=== PATIENT | male | born 1950 | race African-American/Black ===

== ENCOUNTER 2019-03-01 12:24 | Emergency (ER) | payer OTHER ==
[2019-03-01 13:11] LABS: #Basophils 0.1 thou/uL (0.0-0.2); #Eosinphils 0.2 thou/uL (0.0-0.7); #Lymphocytes 1.6 thou/uL (1.20-3.40); #Monocytes 0.7 thou/uL (0.11-0.59); #Neutrophils 3.8 thou/uL (1.40-6.50); %Basophils 1.9 % (0.0-1.0); %Eosinophils 3.5 % (0.0-10.0); %Monocytes 10.6 % (0.0-10.0); Hemoglobin 14.9 g/dL (14.0-18.0); Mean Corpuscular HGB CONC 33.2 g/dL (32.0-36.0); Mean Corpuscular Hemoglobin 33.3 pg (27.0-31.0); Platelet Count 216 thou/uL (130-400); RBC Distribution Width 12.3 % (11.5-14.5); Red Blood Cell (RBC) Count 4.47 mill/uL (4.70-6.10); White Blood Cell (WBC) Count 6.5 thou/uL (4.8-10.8)
[2019-03-01 13:35] LABS: ALT (SGPT) 19 U/L (8-55); AST (SGOT) 18 U/L (5-34); Albumin 4.3 g/dL (3.4-4.8); Alkaline Phosphatase 70 U/L (40-150); Anion Gap 8 mmol/L (10-20); BUN (Urea Nitrogen) 11 mg/dL (8.4-25.7); Bilirubin, Total 0.5 mg/dL (0.2-1.2); Calc. Creatinine Clearance 0 mL/min (70-130); Calcium 9.2 mg/dL (7.8-10.44); Carbon Dioxide 30 mmol/L (23-31); Chloride 103 mmol/L (98-107); Estimated GFR-MDRD 73; Globulin 2.9 g/dL (2.4-3.5); Glucose 148 mg/dL (80-115); Potassium 4.4 mmol/L (3.5-5.1); Protein, Total 7.2 g/dL (5.8-8.1); Sodium 137 mmol/L (136-145)
--- NOTE | 2019-03-01 13:36 | CT ---
CT HEAD WITHOUT CONTRAST: Date: 03/01/19 INDICATION: Dizziness. No comparison. FINDINGS: Ventricles have normal size and position. Lucency in the right cerebellum suggests old cerebellar infarct. Probable lacunar infarct in the left cerebellum. Mild chronic ischemic white matter change. No mass or hemorrhage. No evidence of acute c ortical infarct. IMPRESSION: Evidence of old cerebellar infarcts. Moderate chronic ischemic white matter changes in the cerebral h emispheres. No evidence of acute cortical infarct or hemorrhage. POS: OFF
[2019-03-01 13:47] LABS: Bilirubin Negative (Negative); Blood, Urine Negative (Negative); Clarity Clear (Clear); Glucose, Urine (Dipstick) Normal (Negative); Leukocyte Negative Leu/uL (Negative); Nitrite Negative (Negative); Protein, Urine (Dipstick) 10 mg/dL (Neg-Trace); Urobilinogen Normal mg/dL (Less than 2)
[2019-03-01] MEDS ORDERED: Meclizine HCl 25 MG TAB ONE (14:36)
== END 2019-03-01 14:41 | disposition home or self-care (01) ==
LOC: ERS 12:24
DX: H81.10 Benign paroxysmal vertigo, unspecified ear (principal); I10 Essential (primary) hypertension; G47.30 Sleep apnea, unspecified; F41.9 Anxiety disorder, unspecified; F32.9 Major depressive disorder, single episode, unspecified; F43.10 Post-traumatic stress disorder, unspecified; Z87.891 Personal history of nicotine dependence; Z79.899 Other long term (current) drug therapy; Z79.82 Long term (current) use of aspirin
CPT/HCPCS: 36415; 70450; 80053; 81003; 84484; 85025; 87086; 93005; J8597

== ENCOUNTER 2020-02-24 18:19 | Inpatient (IN) | payer MEDICARE, OTHER ==
[2020-02-24 19:02] LABS: #Basophils 0.1 thou/uL (0.0-0.2); #Eosinphils 0.2 thou/uL (0.0-0.7); #Lymphocytes 2.3 thou/uL (1.20-3.40); #Monocytes 0.7 thou/uL (0.11-0.59); #Neutrophils 2.9 thou/uL (1.40-6.50); %Basophils 1.4 % (0.0-1.0); %Eosinophils 3.7 % (0.0-10.0); %Lymphocytes 37.1 % (21.0-51.0); %Monocytes 11.1 % (0.0-10.0); %Neutrophils 46.7 % (42.0-75.0); Hemoglobin 14.6 g/dL (14.0-18.0); Mean Corpuscular HGB CONC 33.4 g/dL (32.0-36.0); Mean Corpuscular Hemoglobin 33.5 pg (27.0-31.0); Mean Platelet Volume 7.4 fL (7.4-10.4); Platelet Count 198 thou/uL (130-400); RBC Distribution Width 12.1 % (11.5-14.5); Red Blood Cell (RBC) Count 4.34 mill/uL (4.70-6.10); White Blood Cell (WBC) Count 6.2 thou/uL (4.8-10.8)
--- NOTE | 2020-02-24 19:04 | CT ---
CT BRAIN NONCONTRAST: DATE: 02/24/2020 HISTORY: 69-year-old male with facial droop, headache, and dysarthria COMPARISON: 03/01/2019 FINDINGS: [id number] old infarction in right cerebellar hemisphere again noted. Additional tiny old lacunar infarctions in bilateral cerebellar hemispheres, again noted. Tiny old lacunar infarctions of bilateral thalami again noted. Multiple small and tiny old white matter lacunar infarctions involving bilateral ortega radiata and c entrum semiovale, greater in number than on previous CT. No obstructive hydrocephalus, acute intra-axial or extra-axial hemorrhage, mass effect, midline shift , or extra-axial fluid collection. Calvarium is intact. IMPRESSION: 1) no acute intracranial hemorrhage or mass effect. 2) multiple small old deep cerebral white matter lacunar infarctions, greater in number than on previ ous CT. 3) multiple tiny old lacunar infarctions in bilateral cerebellar hemispheres 4) small-moderate size old infarction in right cerebellar hemisphere 5.) A few tiny old lacunar infarctions in bilateral thalami
[2020-02-24 19:18] LABS: ALT (SGPT) 18 U/L (8-55); AST (SGOT) 17 U/L (5-34); Albumin 4.3 g/dL (3.4-4.8); Alkaline Phosphatase 65 U/L (40-110); Anion Gap 13 mmol/L (10-20); BUN (Urea Nitrogen) 14 mg/dL (8.4-25.7); Bilirubin, Total 0.4 mg/dL (0.2-1.2); Calc. Creatinine Clearance 0 mL/min (70-130); Calcium 8.8 mg/dL (7.8-10.44); Carbon Dioxide 26 mmol/L (23-31); Chloride 104 mmol/L (98-107); Estimated GFR-MDRD 62; Glucose 130 mg/dL (83-110); Potassium 4.2 mmol/L (3.5-5.1); Protein, Total 7.3 g/dL (5.8-8.1); Sodium 139 mmol/L (136-145)
[2020-02-24] MEDS ORDERED: Aspirin Chewable 81 MG TAB ONE (20:01)
[2020-02-24 21:25] LABS: Troponin I 0.019 ng/mL (< 0.028)
[2020-02-24] MEDS ORDERED: Acetaminophen 325 MG TAB PO PRN ×2 (22:36→23:35)
[2020-02-24] MEDS ORDERED: HYDROcodone/Acetaminophen 5/325 mg Tablet PO PRN ×2 (22:36)
[2020-02-24] MEDS ORDERED: Ondansetron ODT 4 MG TAB SL PRN (22:36)
[2020-02-24] MEDS ORDERED: Sodium Chloride 0.9% 1,000 ML IV SCH (22:36)
[2020-02-24] MEDS ORDERED: Ondansetron PF 4 MG/2 ML Vial IVP PRN ×2 (22:36→23:35)
[2020-02-24] MEDS ORDERED: Promethazine HCl 12.5 MG in Sodium Chloride 0.9% 50 ML IVPB PRN (23:35)
[2020-02-24] MEDS ORDERED: Morphine 2 MG/ML VIAL SLOW IVP PRN (23:35)
[2020-02-24] MEDS ORDERED: Guaifenesin DM 100-10/5 ML UDCUP PO PRN (23:35)
[2020-02-24] MEDS ORDERED: hydrALAZINE 20 MG/ML VIAL SLOW IVP PRN (23:36)
[2020-02-24] MEDS ORDERED: Labetalol HCl 100 MG/20 ML VIAL SLOW IVP PRN (23:36)
[2020-02-24] MEDS ORDERED: Dextrose 50% Abboject 50 ML SYRINGE SLOW IVP PRN (23:39)
[2020-02-24] MEDS ORDERED: Electrolyte Replacement Protoc 1 EACH EACH FS SCH (23:45)
[2020-02-24 23:58] LABS: Troponin I 0.017 ng/mL (< 0.028)
--- NOTE | 2020-02-25 00:54 | PDOC.HHP ---
Hospitalist HPI - History of Present Illness R Facial droop, L sided body weakness History of Present Illness: Patient is a 69 year old male with PMH CVA, HTN, HLD, DM who presents to ED for R sided facial droop and L sided body weakness and numbness. Symptoms began at 1300 on 02/22, patient also reports mouth and gum soreness as well as tingling, numbness and shooting pain in L side of body more severe than chronic diabetic neuropathy. He has history of stroke with no residual deficits. In ED, patient not tPA candidate given delayed presentation from onset of symptoms. Patient had a CT head without acute findings. He was given aspirin and is to be admitted for stroke workup. Hospitalist ROS - Review of Systems Constitutional: denies: fever, chills, sweats, weakness, malaise, other Eyes: denies: pain, vision change, conjunctivae inflammation, eyelid inflammation, redness, other ENT: denies: ear pain, ear discharge, nose pain, nose discharge, nose congestion , mouth pain, mouth swelling, throat pain, throat swelling, other Respiratory: denies: cough, dry, shortness of breath, hemoptysis, SOB with excertion, pleuritic pain, sputum, wheezing, other Cardiovascular: denies: chest pain, palpitations, orthopnea, paroxysmal noc. dyspnea, edema, light headedness, other Gastrointestinal: denies: nausea, vomiting, abdominal pain, diarrhea, constipation, melena, hematochezia, other Genitourinary: denies: dysuria, frequency, incontinence, hematuria, retention, other Musculoskeletal: denies: neck pain, shoulder pain, arm pain, back pain, hand pain, leg pain, foot pain, other Skin: denies: rash, lesions, vicky, bruising, other Neurological: reports: weakness, numbness Other: weakness numbness facial droop per HPI All other systems reviewed; all pertinent +/- noted in HPI/Subj - Medication Medications: Active Medications Generic Name Dose Route Start Last Admin Trade Name Freq PRN Reason Stop Dose Admin Sodium Chloride 1,000 mls @ 100 mls/hr 02/24/20 22:36 02/24/20 23:12 Normal Saline 0.9% IV 02/25/20 08:00 1,000 mls .Q10H EDGAR Administration Sodium Chloride 10 ml 02/24/20 22:36 02/24/20 23:12 Flush - Normal Saline IVF 02/25/20 08:00 10 ml PRN PRN Administration Saline Flush amLODIPine TABLET : Strength - 10 mg : ORAL Patient Dose: 1 tab(s) Oral once a day. aspirin oral TABLET : Strength - 81 mg : ORAL Patient Dose: 1 tab(s) Oral once a day. losartan TABLET : Strength - 100 mg : ORAL Patient Dose: 100 mg Oral once a day. Hospitalist History - Past Medical History Other Medical History: CVA, HTN, HLD, DM, protstate cancer - Past Surgical History Other Surgical History: prostatectomy, cataract, aneurysm repair, anxiety, depression. - Family History Family History: reports: no pertinent history - Social History Smoking Status: Former smoker Alcohol: reports: None Drugs: reports: none - Exam General Appearance: NAD, awake alert Eye: PERRL, anicteric sclera ENT: normocephalic atraumatic, no oropharyngeal lesions, moist mucosa ENT - other findings: R facial droop Neck: supple, symmetric, no JVD, no thyromegaly, no lymphadenopathy, no carotid bruit Heart: RRR, no murmur, no gallops, no rubs, normal peripheral pulses Respiratory: CTAB, no wheezes, no rales, no ronchi, normal chest expansion, no tachypnea, normal percussion Gastrointestinal: soft, non-tender, non-distended, normal bowel sounds, no palpable masses, no hepatomegaly, no splenomegaly, no bruit Extremities: no cyanosis, no clubbing, no edema Skin: normal turgor, no lesions, no rashes Neurological - other findings: 4/5 strength in all L arm/leg muscle groups, 5/5 on R. red. sensation L meredith Musculoskeletal: normal tone, no muscle wasting Psychiatric: normal affect, normal behavior, A&O x 3 Hospitalist Results - Labs Result Diagrams: 02/24/20 18:45 02/24/20 18:45 Lab results: WBC 6.2 thou/uL (4.8-10.8) 02/24/20 18:45 Hgb 14.6 g/dL (14.0-18.0) 02/24/20 18:45 Hct 43.6 % (42.0-52.0) 02/24/20 18:45 MCV 101.0 fL (78.0-98.0) H 02/24/20 18:45 Plt Count 198 thou/uL (130-400) 02/24/20 18:45 Neutrophils % 46.7 % (42.0-75.0) 02/24/20 18:45 Sodium 139 mmol/L (136-145) 02/24/20 18:45 Potassium 4.2 mmol/L (3.5-5.1) 02/24/20 18:45 Chloride 104 mmol/L (98-107) 02/24/20 18:45 Carbon Dioxide 26 mmol/L (23-31) 02/24/20 18:45 BUN 14 mg/dL (8.4-25.7) 02/24/20 18:45 Creatinine 1.38 mg/dL (0.7-1.3) H 02/24/20 18:45 Glucose 130 mg/dL (83-110) H 02/24/20 18:45 Calcium 8.8 mg/dL (7.8-10.44) 02/24/20 18:45 Total Bilirubin 0.4 mg/dL (0.2-1.2) 02/24/20 18:45 AST 17 U/L (5-34) 02/24/20 18:45 ALT 18 U/L (8-55) 02/24/20 18:45 Alkaline Phosphatase 65 U/L (40-110) 02/24/20 18:45 Troponin I 0.017 ng/mL (< 0.028) 02/24/20 23:26 Serum Total Protein 7.3 g/dL (5.8-8.1) 02/24/20 18:45 Albumin 4.3 g/dL (3.4-4.8) 02/24/20 18:45 Additional comment: VITAL SIGNS SunFeb 24, 2020 20:30 NESTOR Kumari Jonathan BP: 170/90 (Right Arm) MAP: 116 Pulse: 67 Resp: 16 O2 sat: 96 on (Room Air) Time: 02/24/2020 20:30. all labs, imaging, EKG, ED documents reviewed by me. Hospitalist H&P A/P - Plan Plan: Patient is a 69 year old male with PMH CVA, HTN, HLD, DM who presents to ED for R sided facial droop and L sided body weakness and numbness. # R facial droop, L sided body weakness and numbness concerning for ischemic stroke - CT head with no acute findings but sequela of old strokes probably, MRI and echo ordered - consult neurology - permissive HTN - ASA, lovenox - rehab evaluation - no tPA as 24+ hours between symtom onset and presentation - given repeat strokes, monitor telemetry for afib # DM - SSI, A1C # HTN - permissive HTN # HLD - await home med rec, statin
[2020-02-25 01:59] VITALS: BMI 33.1
[2020-02-25 04:58] LABS: #Basophils 0.1 thou/uL (0.0-0.2); #Eosinphils 0.2 thou/uL (0.0-0.7); #Lymphocytes 2.1 thou/uL (1.20-3.40); #Monocytes 0.7 thou/uL (0.11-0.59); #Neutrophils 3.1 thou/uL (1.40-6.50); %Eosinophils 3.9 % (0.0-10.0); %Lymphocytes 34.3 % (21.0-51.0); %Monocytes 10.9 % (0.0-10.0); Hemoglobin 13.5 g/dL (14.0-18.0); Mean Corpuscular HGB CONC 32.2 g/dL (32.0-36.0); Mean Corpuscular Hemoglobin 32.4 pg (27.0-31.0); Mean Platelet Volume 7.4 fL (7.4-10.4); Platelet Count 192 thou/uL (130-400); RBC Distribution Width 12.1 % (11.5-14.5); Red Blood Cell (RBC) Count 4.17 mill/uL (4.70-6.10); White Blood Cell (WBC) Count 6.2 thou/uL (4.8-10.8)
[2020-02-25 04:59] LABS: Hemoglobin A1c 8.2 % (4.0-6.0)
[2020-02-25 05:15] LABS: Anion Gap 9 mmol/L (10-20); BUN (Urea Nitrogen) 13 mg/dL (8.4-25.7); Calc. Creatinine Clearance 96 mL/min (70-130); Calcium 8.5 mg/dL (7.8-10.44); Carbon Dioxide 28 mmol/L (23-31); Cardiac Risk 3.7 (Less than 4.5); Chloride 105 mmol/L (98-107); Cholesterol 122 mg/dl (< 200 Desired); Estimated GFR-MDRD 79; Glucose 139 mg/dL (83-110); HDL Cholesterol 33 mg/dL (>60 Neg Risk); LDL Cholesterol, Calculated 71 mg/dL; Magnesium 1.7 mg/dL (1.6-2.6); Potassium 3.9 mmol/L (3.5-5.1); Sodium 138 mmol/L (136-145); Triglycerides 88 mg/dL (Less than 150)
[2020-02-25] MEDS ORDERED: Magnesium 2 GM/50 ML 2 GM in Premix Bag 1 BAG IVPB SCH (06:15)
[2020-02-25] MEDS: Polyethylene Glycol 3350 17 GM Packet PO SCH (08:03)
[2020-02-25] MEDS: Aspirin 325 mg Enteric Coated Tablet PO SCH (08:03)
[2020-02-25] MEDS: Enoxaparin Sodium 40 MG/0.4 ML SYRINGE SC SCH (08:03)
[2020-02-25] MEDS: Famotidine 20 MG TAB PO SCH ×2 (08:03→21:04)
[2020-02-25] MEDS: HYDROcodone/Acetaminophen 5/325 mg Tablet PO PRN ×2 (08:04→17:33)
--- NOTE | 2020-02-25 08:39 | MRI ---
Exam: Brain MRI without contrast HISTORY: Left-sided weakness. Evaluate for stroke. COMPARISON: None FINDINGS: Calvarial marrow signal intensity: Appropriate T1 signal Gradient echo sequence: No hemorrhage Brain parenchyma: No mass, mass effect or midline shift. Brain volume, age-appropriate. Cortical murry-white matter differentiation: Preserved Restricted diffusion: Focus of restricted diffusion involving the left ortega radiata. Associated T2 and FLAIR hyperintensity. White matter signal intensities:Additional T2, FLAIR white matter hyperintensities due to chronic sma ll vessel ischemic changes Sinuses: Adequate aeration of the paranasal sinuses and mastoid air cells. IMPRESSION: Acute restricted diffusion in the left coronary radiata. Acute left white matter infarct.
--- NOTE | 2020-02-25 11:24 | ULT ---
BILATERAL CAROTID DUPLEX ULTRASOUND: HISTORY: CVA TECHNIQUE: Grayscale, color-flow and spectral Doppler ultrasound imaging of the extracranial carotid artery syst ems was performed bilaterally. FINDINGS: There is plaque formation on both sides The peak systolic velocity in the right ICA measures 109 cm/s with an end-diastolic velocity of 39 cm /s and a systolic ratio of 1.09. The peak systolic velocity in the left ICA measures 100 cm/s with an end-diastolic velocity of 34 cm/s and a systolic ratio of 1.02. Flow in both vertebral arteries remains antegrade. IMPRESSION: No evidence of hemodynamically significant stenosis in either ICA.
--- NOTE | 2020-02-25 12:29 | CON ---
NEUROLOGY CONSULTATION DATE OF CONSULTATION: 02/25/2020 REASON FOR CONSULTATION: Stroke. HISTORY OF PRESENT ILLNESS: Mr. May is a 69-year-old male with medical history significant for prior CVA, hypertension, hyperlipidemia, diabetes, presented to the emergency room with right facial droop and weakness and numbness of the left side of the body. His symptoms began around 1 p.m. on 02/22, which was also associated with tingling, numbness, and painful paresthesias on the left side of the body, which became most severe than chronic diabetic neuropathy. The patient had a prior stroke, but no residual deficits per the patient. The patient denies any problems with speech, swallowing, nausea, vomiting, headache, chest pain, abdominal pain, recent illness, dysuria, urinary retention, or shortness of breath. He denies any recent contacts or exposure to COVID. He was not deemed a candidate for tPA because of his delayed presentation to the emergency room. Head CT was done, which was negative for acute intracranial pathology. He was given aspirin and admitted for further stroke workup. HOME MEDICATIONS: 1. Amlodipine 10 mg once daily. 2. Aspirin 81 mg once daily. 3. Losartan 100 mg once daily. PAST MEDICAL HISTORY: Prior CVA, hypertension, hyperlipidemia, prostate cancer, diabetes mellitus, anxiety, depression. PAST SURGICAL HISTORY: Prostatectomy, cataract surgery, aneurysm repair. FAMILY HISTORY: No pertinent family history. SOCIAL HISTORY: The patient is a former smoker. Denies alcohol or illegal drug use. ALLERGIES: NKDA REVIEW OF SYSTEMS: Constitutional: denies: fever, chills, sweats, weakness, malaise, other Eyes: denies: pain, vision change, conjunctivae inflammation, eyelid inflammation, redness, other ENT: denies: ear pain, ear discharge, nose pain, nose discharge, nose congestion , mouth pain, mouth swelling, throat pain, throat swelling, other Respiratory: denies: cough, dry, shortness of breath, hemoptysis, SOB with excertion, pleuritic pain, sputum, wheezing, other Cardiovascular: denies: chest pain, palpitations, orthopnea, paroxysmal noc. dyspnea, edema, light headedness, other Gastrointestinal: denies: nausea, vomiting, abdominal pain, diarrhea, constipation, melena, hematochezia, other Genitourinary: denies: dysuria, frequency, incontinence, hematuria, retention, other Musculoskeletal: denies: neck pain, shoulder pain, arm pain, back pain, hand pain, leg pain, foot pain, other Skin: denies: rash, lesions, vicky, bruising, other Neurological: reports: weakness, numbness PHYSICAL EXAMINATION: General Appearance: NAD, awake alert Eye: PERRL, anicteric sclera ENT: normocephalic atraumatic, no oropharyngeal lesions, moist mucosa ENT - other findings: R facial droop Neck: supple, symmetric, no JVD, no thyromegaly, no lymphadenopathy, no carotid bruit Heart: RRR, no murmur, no gallops, no rubs, normal peripheral pulses Respiratory: CTAB, no wheezes, no rales, no ronchi, normal chest expansion, no tachypnea, normal percussion Gastrointestinal: soft, non-tender, non-distended, normal bowel sounds, no palpable masses, no hepatomegaly, no splenomegaly, no bruit Extremities: no cyanosis, no clubbing, no edema Skin: normal turgor, no lesions, no rashes Neurological - : Mental status; the patient is alert and oriented to person, place, and time. Speech is clear. Fund of knowledge is appropriate. Recent and remote memory, intact. Cranial nerves 2 through 12 intact except 7, right facial droop. Motor; muscle tone and bulk are normal. Strength; 4+/5 in the left upper and lower extremities, 5/5 in the right upper and lower extremities. Sensory; decreased sensation in the right upper and lower extremity. Cerebellar; finger-nose testing intact. Gait deferred due to the patient's safety reason. LABORATORY AND DIAGNOSTIC DATA: Data reviewed. I reviewed the labs, which are essentially unremarkable except for hyperglycemia, glucose of 130. Head CT did not reveal any acute intracranial pathology. Carotid Dopplers did not show hemodynamically significant stenosis. 02/24/20 18:45 Lab results: WBC 6.2 thou/uL (4.8-10.8) 02/24/20 18:45 Hgb 14.6 g/dL (14.0-18.0) 02/24/20 18:45 Hct 43.6 % (42.0-52.0) 02/24/20 18:45 MCV 101.0 fL (78.0-98.0) H 02/24/20 18:45 Plt Count 198 thou/uL (130-400) 02/24/20 18:45 Neutrophils % 46.7 % (42.0-75.0) 02/24/20 18:45 Sodium 139 mmol/L (136-145) 02/24/20 18:45 Potassium 4.2 mmol/L (3.5-5.1) 02/24/20 18:45 Chloride 104 mmol/L (98-107) 02/24/20 18:45 Carbon Dioxide 26 mmol/L (23-31) 02/24/20 18:45 BUN 14 mg/dL (8.4-25.7) 02/24/20 18:45 Creatinine 1.38 mg/dL (0.7-1.3) H 02/24/20 18:45 Glucose 130 mg/dL (83-110) H 02/24/20 18:45 Calcium 8.8 mg/dL (7.8-10.44) 02/24/20 18:45 Total Bilirubin 0.4 mg/dL (0.2-1.2) 02/24/20 18:45 AST 17 U/L (5-34) 02/24/20 18:45 ALT 18 U/L (8-55) 02/24/20 18:45 Alkaline Phosphatase 65 U/L (40-110) 02/24/20 18:45 Troponin I 0.017 ng/mL (< 0.028) 02/24/20 23:26 Serum Total Protein 7.3 g/dL (5.8-8.1) 02/24/20 18:45 Albumin 4.3 g/dL (3.4-4.8) 02/24/20 18:45 ASSESSMENT AND PLAN: Mr. Irma May is a 69-year-old male with medical history significant for hypertension, hyperlipidemia, diabetes mellitus, prior stroke, presented with right facial droop and left focal weakness and paresthesias, most likely stroke. MRI of the brain to rule out acute intracranial process. 2D echo to evaluate for left ventricle ejection fraction. Permissive control of blood pressure at this time. Increase aspirin to 324 mg daily. Consider statin for secondary stroke prevention. Strict control of blood glucose. Check hemoglobin A1c, fasting lipid profile, and TSH. Telemetry. DVT prophylaxis. Neuro checks every 4 hours. Continue home medications. Continue medical management per primary team. PT/OT/speech and rehab evaluation. We will continue to follow. Thank you for the consult. Job ID: [id number] MTDD
[2020-02-25] MEDS: HumaLOG 300 UNITS/3 ML VIAL SC PRN (12:34)
[2020-02-25 13:04] LABS: SARS-CoV-2 MS2 Positive; SARS-CoV-2 N Gene Negative; SARS-CoV-2 S Gene Negative; SARS-CoV-2 by NAA Not Detected (NotDetected); SARS-CoV-2 orf1ab Negative
[2020-02-25] MEDS ORDERED: Senokot 8.6 MG TAB PO PRN (13:52)
[2020-02-25] MEDS ORDERED: Atorvastatin Calcium 40 MG TAB PO SCH (21:00)
--- NOTE | 2020-02-25 22:57 | PDOC.HOSPP ---
- Subjective Encounter Date: 02/25/20 Subjective: Doing well. Was able to get up and walk well with PT. Does not feel like he has any residual effects at this time. - Objective Vital Signs & Weight: Vital Signs (12 hours) Temp Pulse Resp BP Pulse Ox 02/25/20 19:55 97.5 F L 65 20 151/81 H 90 L 02/25/20 15:27 97.3 F L 68 20 167/90 H 96 02/25/20 11:37 97.6 F 62 16 159/82 H 92 L Weight Weight 244 lb 4.8 oz I&O: 02/24/20 02/25/20 02/26/20 06:59 06:59 06:59 Intake Total 774 Balance 774 Result Diagrams: 02/25/20 04:38 02/25/20 04:38 Additional Labs: Accuchecks 02/25/20 02/25/20 02/25/20 20:26 17:04 10:28 POC Glucose 215 H 124 H 183 H 02/25/20 05:15 POC Glucose 131 H Hospitalist ROS - Medication Medications: Active Medications Generic Name Dose Route Start Last Admin Trade Name Freq PRN Reason Stop Dose Admin Hydrocodone Bitart/Acetaminophen 1 tab 02/24/20 23:35 02/25/20 17:33 [place] 5/325 PO 1 tab Q4H PRN Administration Moderate Pain (4-6) Aspirin 325 mg 02/25/20 09:00 02/25/20 08:03 Ecotrin PO 325 mg DAILY EDGAR Administration Atorvastatin Calcium 40 mg 02/25/20 21:00 02/25/20 21:04 Lipitor PO 40 mg HS EDGAR Administration Enoxaparin Sodium 40 mg 02/25/20 09:00 02/25/20 08:03 Lovenox SC 40 mg 0900 EDGAR Administration Famotidine 20 mg 02/25/20 09:00 02/25/20 21:04 Pepcid PO 20 mg BID EDGAR Administration Insulin Human Lispro 0 units 02/24/20 23:39 02/25/20 12:34 Humalog SC 2 unit .MILD SLIDING SCALE PRN Administration Mild Correctional Scale Morphine Sulfate 2 mg 02/24/20 23:35 02/25/20 18:45 Morphine SLOW IVP 2 mg Q4H PRN Administration severe pain 4-10 Polyethylene Glycol 17 gm 02/25/20 09:00 02/25/20 08:03 Miralax PO 17 gm DAILY EDGAR Administration Senna 2 tab 02/25/20 13:52 02/25/20 21:04 Senokot PO 2 tab HSPRN PRN Administration Constipation Sodium Chloride 10 ml 02/24/20 23:36 02/25/20 21:05 Flush - Normal Saline IVF 10 ml PRN PRN Administration Saline Flush - Exam General Appearance: NAD, awake alert Neck: supple, symmetric, no JVD, no thyromegaly, no lymphadenopathy, no carotid bruit Heart: RRR, no murmur, no gallops, no rubs, normal peripheral pulses Respiratory: CTAB, no wheezes, no rales, no ronchi, normal chest expansion, no tachypnea, normal percussion Gastrointestinal: soft, non-tender, non-distended, normal bowel sounds, no palpable masses, no hepatomegaly, no splenomegaly, no bruit Extremities: no cyanosis, no clubbing, no edema Skin: normal turgor, no lesions, no rashes Neurological: cranial nerve grossly intact, normal sensation to touch, no weakness, no focal deficits, no new deficit Musculoskeletal: normal tone, normal strength, no muscle wasting Psychiatric: normal affect, normal behavior, A&O x 3 Hosp A/P (1) CVA (cerebral vascular accident) Code(s): I63.9 - CEREBRAL INFARCTION, UNSPECIFIED Status: Acute (2) HTN (hypertension) Code(s): I10 - ESSENTIAL (PRIMARY) HYPERTENSION Status: Acute (3) Diabetes mellitus Code(s): E11.9 - TYPE 2 DIABETES MELLITUS WITHOUT COMPLICATIONS Status: Acute - Plan CVA: Does not appear to have any significant residual deficits at this time. He is on ASA, statin. Reports this is his 3rd, but MRI does not really support that. Appreciate Neuro consult. Continue to observe overnight. Hopefully, can DC tomorrow if he has not complications. HTN: Permissive HTN for now. Resume his Losartan and amlodipine. DM: Metformin and insulin. Generally, control is adequate.
[2020-02-26 06:08] LABS: #Eosinphils 0.2 thou/uL (0.0-0.7); #Lymphocytes 1.5 thou/uL (1.20-3.40); #Monocytes 0.6 thou/uL (0.11-0.59); #Neutrophils 3.1 thou/uL (1.40-6.50); %Basophils 0.4 % (0.0-1.0); %Eosinophils 3.4 % (0.0-10.0); %Lymphocytes 28.4 % (21.0-51.0); %Monocytes 10.8 % (0.0-10.0); %Neutrophils 56.9 % (42.0-75.0); Hemoglobin 13.3 g/dL (14.0-18.0); Mean Corpuscular HGB CONC 32.6 g/dL (32.0-36.0); Mean Corpuscular Hemoglobin 32.9 pg (27.0-31.0); Mean Platelet Volume 7.7 fL (7.4-10.4); Platelet Count 186 thou/uL (130-400); Red Blood Cell (RBC) Count 4.04 mill/uL (4.70-6.10); White Blood Cell (WBC) Count 5.4 thou/uL (4.8-10.8)
[2020-02-26 06:24] LABS: Anion Gap 10 mmol/L (10-20); BUN (Urea Nitrogen) 14 mg/dL (8.4-25.7); Calc. Creatinine Clearance 88 mL/min (70-130); Calcium 8.4 mg/dL (7.8-10.44); Carbon Dioxide 28 mmol/L (23-31); Chloride 104 mmol/L (98-107); Estimated GFR-MDRD 72; Glucose 145 mg/dL (83-110); Magnesium 1.9 mg/dL (1.6-2.6); Potassium 4.2 mmol/L (3.5-5.1); Sodium 138 mmol/L (136-145)
[2020-02-26] MEDS ORDERED: Magnesium 2 GM/50 ML 2 GM in Premix Bag 1 BAG IVPB SCH (07:30)
[2020-02-26] MEDS: Polyethylene Glycol 3350 17 GM Packet PO SCH (07:50)
[2020-02-26] MEDS: HYDROcodone/Acetaminophen 5/325 mg Tablet PO PRN (07:50)
[2020-02-26] MEDS: Famotidine 20 MG TAB PO SCH (07:50)
[2020-02-26] MEDS: Enoxaparin Sodium 40 MG/0.4 ML SYRINGE SC SCH (07:52)
[2020-02-26] MEDS: Aspirin 325 mg Enteric Coated Tablet PO SCH (07:52)
[2020-02-26 08:49] VITALS: BP 159/87; TEMP 98.2
[2020-02-26] MEDS: HumaLOG 300 UNITS/3 ML VIAL SC PRN (10:43)
--- NOTE | 2020-02-26 12:18 | PDOC.NEUPN ---
- Subjective Encounter Date: 03/04/20 Subjective: Patient feels better and denies any new complaints. - Objective Vital Signs & Weight: Vital Signs (12 hours) Temp Pulse Resp BP Pulse Ox 02/26/20 08:00 98.2 F 67 12 159/87 H 93 L 02/26/20 07:50 93 L 02/26/20 03:40 97.9 F 65 18 151/78 H 93 L Weight Weight 244 lb 4.8 oz I&O: 02/25/20 02/26/20 02/27/20 06:59 06:59 06:59 Intake Total 774 Balance 774 Result Diagrams: 02/26/20 05:39 02/26/20 05:39 Additional Labs: Accuchecks 02/26/20 02/26/20 02/25/20 10:37 05:43 20:26 POC Glucose 179 H 144 H 215 H 02/25/20 17:04 POC Glucose 124 H Radiology Reviewed by me: Yes EKG Reviewed by me: Yes ROS - Review of Systems Constitutional: denies: fever, chills, sweats, weakness, malaise, other Eyes: denies: pain, vision change, conjunctivae inflammation, eyelid inflammation, redness, other ENT: denies: ear pain, ear discharge, nose pain, nose discharge, nose congestion , mouth pain, mouth swelling, throat pain, throat swelling, other Respiratory: denies: cough, dry, shortness of breath, hemoptysis, SOB with excertion, pleuritic pain, sputum, wheezing, other Cardiovascular: denies: no pertinent history, AFIB, CAD, CHF, HTN, IN, Syncope, Hyperlipidemia, Mitral valve stenosis, Aortic stenosis, Valve insufficiency, Pulmonary hypertension, Other Gastrointestinal: denies: nausea, vomiting, abdominal pain, diarrhea, constipation, melena, hematochezia, other Genitourinary: denies: dysuria, frequency, incontinence, hematuria, retention, other Skin: denies: rash, lesions, vicky, bruising, other Neurological: reports: numbness. denies: weakness, incoordination, change in speech, confusion, seizures, other - Medication Medications: Active Medications Generic Name Dose Route Start Last Admin Trade Name Freq PRN Reason Stop Dose Admin Acetaminophen 650 mg 02/24/20 23:35 02/26/20 10:43 Tylenol PO 650 mg Q4H PRN Administration Headache/Fever/Mild Pain (1-3) Hydrocodone Bitart/Acetaminophen 1 tab 02/24/20 23:35 02/26/20 07:50 [place] 5/325 PO 1 tab Q4H PRN Administration Moderate Pain (4-6) Albuterol/Ipratropium 3 ml 02/24/20 23:35 02/26/20 02:23 Duoneb NEB 3 ml [id number] PRN Administration SOB &/or Wheezing Aspirin 325 mg 02/25/20 09:00 02/26/20 07:52 Ecotrin PO 325 mg DAILY EDGAR Administration Atorvastatin Calcium 40 mg 02/25/20 21:00 02/25/20 21:04 Lipitor PO 40 mg HS EDGAR Administration Enoxaparin Sodium 40 mg 02/25/20 09:00 02/26/20 07:52 Lovenox SC 40 mg 0900 EDGAR Administration Famotidine 20 mg 02/25/20 09:00 02/26/20 07:50 Pepcid PO 20 mg BID EDGAR Administration Insulin Human Lispro 0 units 02/24/20 23:39 02/26/20 10:43 Humalog SC 2 unit .MILD SLIDING SCALE PRN Administration Mild Correctional Scale Morphine Sulfate 2 mg 02/24/20 23:35 02/25/20 18:45 Morphine SLOW IVP 2 mg Q4H PRN Administration severe pain 4-10 Polyethylene Glycol 17 gm 02/25/20 09:00 02/26/20 07:50 Miralax PO 17 gm DAILY EDGAR Administration Senna 2 tab 02/25/20 13:52 02/25/20 21:04 Senokot PO 2 tab HSPRN PRN Administration Constipation Sodium Chloride 10 ml 02/24/20 23:36 02/25/20 21:05 Flush - Normal Saline IVF 10 ml PRN PRN Administration Saline Flush - Exam General Appearance: awake alert Eye: PERRL ENT: normocephalic atraumatic Neck: supple Respiratory: CTAB Cardiovascular: RRR Gastrointestinal: soft Extremities: no cyanosis Skin: normal turgor Neurological: no new deficit Musculoskeletal: normal tone PSYCH: normal affect, normal behavior, A&O x 3 Results - Labs Result Diagrams: 02/26/20 05:39 02/26/20 05:39 Lab results: WBC 5.4 thou/uL (4.8-10.8) 02/26/20 05:39 Hgb 13.3 g/dL (14.0-18.0) L 02/26/20 05:39 Hct 40.7 % (42.0-52.0) L 02/26/20 05:39 MCV 101.0 fL (78.0-98.0) H 02/26/20 05:39 Plt Count 186 thou/uL (130-400) 02/26/20 05:39 Neutrophils % 56.9 % (42.0-75.0) 02/26/20 05:39 Sodium 138 mmol/L (136-145) 02/26/20 05:39 Potassium 4.2 mmol/L (3.5-5.1) 02/26/20 05:39 Chloride 104 mmol/L (98-107) 02/26/20 05:39 Carbon Dioxide 28 mmol/L (23-31) 02/26/20 05:39 BUN 14 mg/dL (8.4-25.7) 02/26/20 05:39 Creatinine 1.21 mg/dL (0.7-1.3) 02/26/20 05:39 Glucose 145 mg/dL (83-110) H 02/26/20 05:39 Calcium 8.4 mg/dL (7.8-10.44) 02/26/20 05:39 Total Bilirubin 0.4 mg/dL (0.2-1.2) 02/24/20 18:45 AST 17 U/L (5-34) 02/24/20 18:45 ALT 18 U/L (8-55) 02/24/20 18:45 Alkaline Phosphatase 65 U/L (40-110) 02/24/20 18:45 Troponin I 0.017 ng/mL (< 0.028) 02/24/20 23:26 Serum Total Protein 7.3 g/dL (5.8-8.1) 02/24/20 18:45 Albumin 4.3 g/dL (3.4-4.8) 02/24/20 18:45 - EKG Interpretation EKG: NSR - Radiology Interpretation MRI - head Additional Comment: Positive for acute infarction. PN A/P (1) CVA (cerebral vascular accident) Code(s): I63.9 - CEREBRAL INFARCTION, UNSPECIFIED Status: Acute (2) Diabetes mellitus Code(s): E11.9 - TYPE 2 DIABETES MELLITUS WITHOUT COMPLICATIONS Status: Acute (3) HTN (hypertension) Code(s): I10 - ESSENTIAL (PRIMARY) HYPERTENSION Status: Acute - Plan Daily Plan: PT/OT 69 year old presented with focal weakness which is now better. MRI brain was reviewed and was positive for acute infarction. Inconsistent with the presentation. Carotid dopplers did not reveal hemodynamically significant stenosis. 2D Echo showed LVEF 55-60%. No thrombus or PFO. Neurochecks every 4 hours. Telemetry Continue aspirin and statin for secondary stroke prevention. Continue home medications. Continue PT/OT Continue medical management per primary team. Patient stable for discharge . Plan discussed in detail with the patient, during MDR rounds and with the primary attending Dr. Aguila.
--- NOTE | 2020-02-28 15:49 | EKG ---
Test Reason : Blood Pressure : / mmHG Vent. Rate : 061 BPM Atrial Rate : 061 BPM P-R Int : 190 ms QRS Dur : 096 ms QT Int : 380 ms P-R-T Axes : 024 012 032 degrees QTc Int : 382 ms Normal sinus rhythm Nonspecific T wave abnormality Abnormal ECG Confirmed by STEVE MONROY DO ([id number]), video effects editor VALERIY LEES ([id number]) on 02/28/2020 3:49:01 PM Referred By: Confirmed By:STEVE MONROY DO
== END 2020-02-26 12:18 | disposition home or self-care (01) | DRG 65 ==
LOC: ERS 18:19 → 2SE 20:29
PROVIDERS: ADMIT Internal Medicine; ATTEND Internal Medicine
DX: I63.9 Cerebral infarction, unspecified (principal); G81.94 Hemiplegia, unspecified affecting left nondominant side; Z20.828 Contact with and (suspected) exposure to other viral communicable diseases; R29.810 Facial weakness; I10 Essential (primary) hypertension; E78.5 Hyperlipidemia, unspecified; E11.40 Type 2 diabetes mellitus with diabetic neuropathy, unspecified; F41.9 Anxiety disorder, unspecified; F32.9 Major depressive disorder, single episode, unspecified; R29.704 NIHSS score 4; Z79.82 Long term (current) use of aspirin; Z85.46 Personal history of malignant neoplasm of prostate; Z87.891 Personal history of nicotine dependence
CPT/HCPCS: 36415; 36416; 70450; 70551; 80048; 80053; 80061; 83036; 83735; 84484; 85025; 87635; 90471; 90732; 93005; 93306; 93880; 94640; 94760; G0009; J1650; J2270; J3475; J7620; U0003

== ENCOUNTER 2022-05-28 14:37 | Inpatient (IN) | payer MEDICARE ==
[~2022-05-28 14:37] MED LIST: Iopamidol-370 76% 500 ML 1 ML ONE
[2022-05-28] MEDS ORDERED: niCARdipine 25 MG/10 ML VIAL ONE (14:38)
[2022-05-28 14:49] LABS: #Basophils 0.1 thou/uL (0.0-0.2); #Eosinphils 0.2 thou/uL (0.0-0.7); #Lymphocytes 2.7 thou/uL (1.20-3.40); %Basophils 0.8 % (0.0-1.0); %Eosinophils 1.5 % (0.0-10.0); %Lymphocytes 20.7 % (21.0-51.0); %Monocytes 7.5 % (0.0-10.0); %Neutrophils 69.5 % (42.0-75.0); Hemoglobin 15.9 g/dL (14.0-18.0); Mean Corpuscular HGB CONC 35.4 g/dL (32.0-36.0); Mean Corpuscular Hemoglobin 35.8 pg (27.0-31.0); Mean Platelet Volume 7.8 fL (7.4-10.4); Platelet Count 158 10x3/uL (130-400); RBC Distribution Width 12.1 % (11.5-14.5); Red Blood Cell (RBC) Count 4.45 mill/uL (4.70-6.10); White Blood Cell (WBC) Count 12.9 10x3/uL (4.8-10.8)
[2022-05-28 14:58] LABS: PTT 23.3 sec (22.9-36.1); Prothrombin Time 13.5 sec (12.0-14.7)
[2022-05-28 15:04] LABS: ALT (SGPT) 20 U/L (8-55); AST (SGOT) 18 U/L (5-34); Albumin 4.1 g/dL (3.4-4.8); Alkaline Phosphatase 79 U/L (40-110); Anion Gap 12 mmol/L (10-20); BUN (Urea Nitrogen) 14 mg/dL (8.4-25.7); Bilirubin, Total 0.5 mg/dL (0.2-1.2); CK (CPK) 70 U/L (30-200); Calc. Creatinine Clearance 0 mL/min (70-130); Calcium 8.6 mg/dL (7.8-10.44); Carbon Dioxide 25 mmol/L (23-31); Chloride 106 mmol/L (98-107); Estimated GFR 60; Globulin 2.9 g/dL (2.4-3.5); Potassium 3.9 mmol/L (3.5-5.1); Sodium 139 mmol/L (136-145)
[2022-05-28 15:07] LABS: Glucose 402 mg/dL (83-110)
[2022-05-28 15:38] LABS: Actual Bicarbonate (HCO3v) 25 mEq/L (22-28); Analyzer IN Cardio ER; Base Excess -2.7 mEq/L (-2.0 to +3.0); Calcium, Ionized (venous) 1.12 mmol/L (1.16-1.32); Chloride (VBG) 104 mmol/L (98-106); Hemoglobin (Hb) 15.9 g/dL (12.6-17.4); Potassium (VBG) 3.82 mmol/L (3.70-5.30); Sodium 139.2 mmol/L (133-146)
[2022-05-28 16:09] LABS: Actual Bicarbonate (HCO3a) 21.5 mEq/L (22-28); Analyzer IN Cardio ER; Base Excess (BEa) -1.3 mEq/L (-2.0 to +3.0); CO2 Tension 31.4 mmHg (35.0-45.0); Calcium, Ionized (arterial) 1.12 mmol/L (1.12-1.30); Carboxyhemoglobin (COHb) 0.3 gm% (0.0-3.0); Hemoglobin (Hb) 14.9 g/dL (14.0-18.0); O2 Tension (PaO2), arterial 124.1 mmHg (> 70.0); Potassium - ABG Lab 3.94 mmol/L (3.70-5.30); pH, Arterial 7.45 (7.35-7.45)
[2022-05-28 16:10] LABS: Puncture Site RRA
[2022-05-28] MEDS ORDERED: FENTANYL 50 MCG/ML 1 ML VIAL ONE ×2 (16:32→16:33)
[2022-05-28] MEDS ORDERED: Fentanyl CADD 100 ML IV SCH (16:45)
[2022-05-28] MEDS ORDERED: Dextrose 50% Abboject 50 ML SYRINGE SLOW IVP PRN (17:12)
[2022-05-28] MEDS ORDERED: Dextrose 5% in Water 1,000 ML IV PRN (17:12)
[2022-05-28] MEDS ORDERED: HumaLOG 300 UNITS/3 ML VIAL SC PRN ×2 (17:12)
[2022-05-28 17:54] LABS: Actual Bicarbonate (HCO3v) 20 mEq/L (22-28); Analyzer IN Cardio ER; Base Excess -7.8 mEq/L (-2.0 to +3.0); Calcium, Ionized (venous) 1.01 mmol/L (1.16-1.32); Chloride (VBG) 104 mmol/L (98-106); Hemoglobin (Hb) 14.7 g/dL (12.6-17.4); Sodium 137.4 mmol/L (133-146); pH (venous) 7.24 (7.32-7.43)
[2022-05-28 17:54] LABS: SARS-CoV-2 NAA Rapid Test Not Detected (NotDetected)
[2022-05-28] MEDS ORDERED: niCARdipine 50 MG in Sodium Chloride 0.9% 250 ML 230 ML IVPB SCH (19:30)
[2022-05-28] MEDS: Lactated Ringer's 1,000 ML IV SCH (19:40)
[2022-05-28] MEDS ORDERED: Acetaminophen 325 MG TAB PER TUBE PRN (20:31)
[2022-05-28] MEDS ORDERED: Senokot S 8.6-50 MG TAB PO PRN (20:35)
[2022-05-28] MEDS ORDERED: Ondansetron PF 4 MG/2 ML Vial IVP PRN (20:35)
[2022-05-28] MEDS ORDERED: Bisacodyl 5 MG TAB PO PRN (20:35)
[2022-05-28] MEDS ORDERED: Midazolam HCl 2 mg/2 ml Vial SLOW IVP PRN (20:35)
[2022-05-28] MEDS ORDERED: Ondansetron ODT 4 MG TAB PO PRN (20:35)
[2022-05-28] MEDS ORDERED: Propofol 1,000 MG/100 ML VIAL IV PRN (20:45)
[2022-05-28] MEDS ORDERED: Ventilator Sedation Protocol 1 EACH FS SCH (20:45)
[2022-05-28] MEDS ORDERED: DISCONTINUE PREVIOUS NARCOTIC PAIN MEDICATIONS AND BENZODIAZEPINES FS SCH (20:45)
[2022-05-28] MEDS ORDERED: Fentanyl BOLUS 250 ML IVPB PRN (20:45)
[2022-05-28] MEDS ORDERED: Morphine 4 MG/ML VIAL SLOW IVP PRN (20:45)
[2022-05-28] MEDS ORDERED: Propofol BOLUS 1,000 MG/100 ML VIAL IV PRN (20:45)
[2022-05-28] MEDS: HumaLOG 300 UNITS/3 ML VIAL SC PRN (21:26)
[2022-05-28] MEDS ORDERED: Sterile Water 10 ML ONE (21:29)
[2022-05-28] MEDS ORDERED: Sodium Chloride 0.9% 15 ML NEB ONE (21:34)
[2022-05-28 22:07] LABS: Actual Bicarbonate (HCO3a) 20.8 mEq/L (22-28); Base Excess (BEa) 0.1 mEq/L (-2.0 to +3.0); Carboxyhemoglobin (COHb) 0.2 gm% (0.0-3.0); Hemoglobin (Hb) 14.4 g/dL (14.0-18.0); O2 Tension (PaO2), arterial 175.1 mmHg (> 70.0); Potassium - ABG Lab 4.25 mmol/L (3.70-5.30); pH, Arterial 7.54 (7.35-7.45)
[2022-05-28 22:13] LABS: ALV-art Gradient 150.525 mmHg (0-20); CO2 Tension 24.7 mmHg (35.0-45.0); Puncture Site LRA
[2022-05-28] MEDS ORDERED: Acetaminophen 650 MG Suppository PR PRN (22:17)
[2022-05-28] MEDS: niCARdipine 50 MG, Admixture Fee 1 EACH in Sodium Chloride 0.9% 250 ML 230 ML IVPB SCH (22:19)
[2022-05-29] MEDS: HumaLOG 300 UNITS/3 ML VIAL SC PRN ×5 (00:56→16:24)
[2022-05-29] MEDS ORDERED: NPH, Human Insulin Isophane 300 UNIT/3 ML VIAL SC SCH (01:00)
[2022-05-29] MEDS ORDERED: Insulin NPH Human Isophane 100 UNIT/ML (10 ML VIAL) SC SCH (01:45)
[2022-05-29 04:55] LABS: #Lymphocytes 1.3 thou/uL (1.20-3.40); #Neutrophils 8.9 thou/uL (1.40-6.50); %Basophils 0.2 % (0.0-1.0); %Eosinophils 0.1 % (0.0-10.0); %Lymphocytes 11.5 % (21.0-51.0); %Monocytes 9.1 % (0.0-10.0); Hemoglobin 14.2 g/dL (14.0-18.0); Mean Corpuscular HGB CONC 33.4 g/dL (32.0-36.0); Mean Corpuscular Hemoglobin 33.4 pg (27.0-31.0); Mean Corpuscular Volume 99.8 fl (78.0-98.0); Mean Platelet Volume 8.5 fL (7.4-10.4); Platelet Count 149 10x3/uL (130-400); RBC Distribution Width 12.2 % (11.5-14.5); Red Blood Cell (RBC) Count 4.26 mill/uL (4.70-6.10); White Blood Cell (WBC) Count 11.3 10x3/uL (4.8-10.8)
[2022-05-29 05:13] LABS: ALT (SGPT) 17 U/L (8-55); AST (SGOT) 23 U/L (5-34); Albumin 3.7 g/dL (3.4-4.8); Alkaline Phosphatase 69 U/L (40-110); Anion Gap 15 mmol/L (10-20); BUN (Urea Nitrogen) 22 mg/dL (8.4-25.7); Bilirubin, Total 0.7 mg/dL (0.2-1.2); Calc. Creatinine Clearance 60 mL/min (70-130); Calcium 8.9 mg/dL (7.8-10.44); Carbon Dioxide 22 mmol/L (23-31); Chloride 109 mmol/L (98-107); Estimated GFR 44; Glucose 291 mg/dL (83-110); Protein, Total 6.7 g/dL (5.8-8.1); Sodium 142 mmol/L (136-145)
[2022-05-29 07:43] LABS: Actual Bicarbonate (HCO3a) 20.7 mEq/L (22-28); Base Excess (BEa) 0.1 mEq/L (-2.0 to +3.0); Calcium, Ionized (arterial) 1.16 mmol/L (1.12-1.30); Carboxyhemoglobin (COHb) 0.5 gm% (0.0-3.0); Hemoglobin (Hb) 14.6 g/dL (14.0-18.0); O2 Tension (PaO2), arterial 105.7 mmHg (> 70.0); pH, Arterial 7.55 (7.35-7.45)
[2022-05-29 07:46] LABS: CO2 Tension 24.4 mmHg (35.0-45.0); Puncture Site RRA
[2022-05-29] MEDS: Insulin Glargine 30 UNITS/0.3 ML VIAL SC SCH (08:40)
[2022-05-29] MEDS: Pantoprazole 40 MG VIAL IVP SCH (08:42)
[2022-05-29] MEDS: Lactated Ringer's 1,000 ML IV SCH ×2 (08:47→23:00)
[2022-05-29] MEDS ORDERED: Amlodipine 10 MG TAB PO SCH (14:00)
[2022-05-29] MEDS ORDERED: Losartan 25 MG TAB PO SCH (14:00)
[2022-05-29] MEDS: CEFAZOLIN 2 GM in Sodium Chloride 0.9% 100 ML IVPB SCH ×2 (14:06→21:05)
[2022-05-29 17:26] VITALS: BMI 31.6
[2022-05-29] MEDS: Atorvastatin Calcium 40 MG TAB PO SCH (20:53)
[2022-05-30] MEDS: HumaLOG 300 UNITS/3 ML VIAL SC PRN ×5 (01:31→21:24)
[2022-05-30] MEDS: niCARdipine 50 MG, Admixture Fee 1 EACH in Sodium Chloride 0.9% 250 ML 230 ML IVPB SCH ×2 (01:31→23:17)
[2022-05-30 04:18] LABS: Actual Bicarbonate (HCO3v) 23 mEq/L (22-28); Base Excess -1.3 mEq/L (-2.0 to +3.0); Calcium, Ionized (venous) 1.14 mmol/L (1.16-1.32); Chloride (VBG) 109 mmol/L (98-106); Hemoglobin (Hb) 13.7 g/dL (12.6-17.4); Potassium (VBG) 3.68 mmol/L (3.70-5.30); Sodium 139.9 mmol/L (133-146); pH (venous) 7.42 (7.32-7.43)
[2022-05-30] MEDS: CEFAZOLIN 2 GM in Sodium Chloride 0.9% 100 ML IVPB SCH ×3 (05:14→21:02)
[2022-05-30] MEDS ORDERED: levETIRAcetam 500 MG/5 ML VIAL SLOW IVP SCH ×2 (08:00→09:00)
[2022-05-30] MEDS: Losartan 25 MG TAB PO SCH (08:17)
[2022-05-30] MEDS: Pantoprazole 40 MG VIAL IVP SCH (08:18)
[2022-05-30] MEDS: Amlodipine 10 MG TAB PO SCH (08:18)
[2022-05-30] MEDS: Insulin Glargine 30 UNITS/0.3 ML VIAL SC SCH (08:18)
[2022-05-30] MEDS: Lactated Ringer's 1,000 ML IV SCH (08:18)
[2022-05-30 08:52] LABS: Base Excess (BEa) -0.8 mEq/L (-2.0 to +3.0); CO2 Tension 45.3 mmHg (35.0-45.0); Carboxyhemoglobin (COHb) 0.2 gm% (0.0-3.0); Hemoglobin (Hb) 13.5 g/dL (14.0-18.0); Potassium - ABG Lab 3.81 mmol/L (3.70-5.30); pH, Arterial 7.36 (7.35-7.45)
[2022-05-30 08:53] LABS: Puncture Site RRA
[2022-05-30 08:57] LABS: ALV-art Gradient 82.275 mmHg (0-20)
[2022-05-30] MEDS: levETIRAcetam 500 MG/5 ML VIAL SLOW IVP SCH (21:01)
[2022-05-30] MEDS: Atorvastatin Calcium 40 MG TAB PO SCH (21:01)
[2022-05-31] MEDS: Lactated Ringer's 1,000 ML IV SCH ×3 (05:37→09:32)
[2022-05-31] MEDS: CEFAZOLIN 2 GM in Sodium Chloride 0.9% 100 ML IVPB SCH (05:37)
[2022-05-31] MEDS: HumaLOG 300 UNITS/3 ML VIAL SC PRN (06:23)
[2022-05-31 08:21] VITALS: TEMP 99.5
[2022-05-31] MEDS ORDERED: FLU VACC QS2022-23(65YR UP)/PF 240 MCG/0.7 ML SYRINGE IM ONE (09:00)
[2022-05-31] MEDS: Insulin Glargine 30 UNITS/0.3 ML VIAL SC SCH (09:00)
[2022-05-31] MEDS: Amlodipine 10 MG TAB PO SCH (09:01)
[2022-05-31] MEDS: levETIRAcetam 500 MG/5 ML VIAL SLOW IVP SCH (09:01)
[2022-05-31] MEDS: Losartan 25 MG TAB PO SCH (09:01)
[2022-05-31] MEDS: Pantoprazole 40 MG VIAL IVP SCH (09:03)
[2022-05-31 10:48] VITALS: BP 133/56
== END 2022-05-31 11:47 | disposition hospice, inpatient (51) | DRG 23 ==
LOC: ERS 14:37 → CCU 14:42
PROVIDERS: ADMIT Student in an Organized Health Care Education/Training Program; ATTEND Family Medicine
PROC: 009630Z Drainage of Cerebral Ventricle with Drainage Device, Percutaneous Approach (ICD-10-PCS; principal; 2022-05-28)
PROC: 5A1945Z Respiratory Ventilation, 24-96 Consecutive Hours (ICD-10-PCS; 2022-05-28)
DX: I61.5 Nontraumatic intracerebral hemorrhage, intraventricular (principal); Z20.822 Contact with and (suspected) exposure to COVID-19; Z66 Do not resuscitate; Z51.5 Encounter for palliative care; J96.01 Acute respiratory failure with hypoxia; G81.94 Hemiplegia, unspecified affecting left nondominant side; I16.1 Hypertensive emergency; G91.1 Obstructive hydrocephalus; G93.49 Other encephalopathy; I69.351 Hemiplegia and hemiparesis following cerebral infarction affecting right dominant side; E78.5 Hyperlipidemia, unspecified; I50.9 Heart failure, unspecified; I11.0 Hypertensive heart disease with heart failure; F41.9 Anxiety disorder, unspecified; F32.A Depression, unspecified; F43.10 Post-traumatic stress disorder, unspecified; R40.20 Unspecified coma; E11.65 Type 2 diabetes mellitus with hyperglycemia; G47.33 Obstructive sleep apnea (adult) (pediatric); Z87.442 Personal history of urinary calculi; Z85.46 Personal history of malignant neoplasm of prostate; Z79.899 Other long term (current) drug therapy; Z79.4 Long term (current) use of insulin; Z79.84 Long term (current) use of oral hypoglycemic drugs; Z79.82 Long term (current) use of aspirin; Z90.79 Acquired absence of other genital organ(s); Z98.890 Other specified postprocedural states; Z87.891 Personal history of nicotine dependence; I25.2 Old myocardial infarction; Z87.11 Personal history of peptic ulcer disease; Z95.1 Presence of aortocoronary bypass graft; Z95.5 Presence of coronary angioplasty implant and graft; Z78.1 Physical restraint status
CPT/HCPCS: 36415; 36416; 36600; 51702; 70450; 70496; 70498; 71045; 80053; 82550; 82805; 84484; 85025; 85610; 85730; 93005; 94002; 94003; 94760; 96365; 96366; 96376; 99292; C9113; J1815; J1953; J3010; J3490; J7050; J7120; Q9967; U0002

== ENCOUNTER 2022-05-31 12:07 | Inpatient (IN) | payer OTHER ==
[2022-05-31] MEDS ORDERED: Midazolam HCl 2 mg/2 ml Vial SLOW IVP PRN (12:27)
[2022-05-31] MEDS ORDERED: Bisacodyl 10 MG SUPP PR PRN (12:28)
[2022-05-31] MEDS ORDERED: Haloperidol Lactate 5 MG/ML VIAL SLOW IVP PRN (12:30)
[2022-05-31] MEDS ORDERED: Acetaminophen 650 MG Suppository PR PRN (12:30)
[2022-05-31] MEDS ORDERED: Scopolamine 1.5 mg/72 hour Patch TOP PRN (12:30)
[2022-05-31] MEDS ORDERED: diphenhydrAMINE 50 MG/ML VIAL IVP PRN (12:30)
[2022-05-31] MEDS ORDERED: Ondansetron PF 4 MG/2 ML Vial IVP PRN (12:30)
[2022-05-31] MEDS: Morphine 4 MG/ML VIAL SLOW IVP PRN ×2 (12:34→15:27)
[2022-05-31] MEDS ORDERED: levETIRAcetam 500 MG/5 ML VIAL SLOW IVP SCH (21:00)
== END 2022-05-31 18:18 | disposition expired | DRG 951 ==
LOC: CCU 12:07
PROVIDERS: ADMIT Family Medicine; ATTEND Family Medicine
DX: Z51.5 Encounter for palliative care (principal); I61.9 Nontraumatic intracerebral hemorrhage, unspecified; I10 Essential (primary) hypertension; E78.5 Hyperlipidemia, unspecified; E11.9 Type 2 diabetes mellitus without complications; Z86.73 Personal history of transient ischemic attack (TIA), and cerebral infarction without residual deficits; Z87.891 Personal history of nicotine dependence
CPT/HCPCS: J2250; J2270